=== PATIENT | female | born 1965 | race Caucasian/White ===

== ENCOUNTER → 2016-11-08 | Outpatient (CLI) | payer BC ==
[~2016-11-08] MED LIST: ALBU1AER9 INH; ATEN-173 PO; BCPILLS PO; BECL0.072 INH; CHOL100010 PO; DICY20TA35 PO; LOSA50TA6 PO; OLOP0.1S2 OPB; PANT1TAB48 PO; SERT25TA PO; SYMIN INH
== END | disposition home or self-care (01) ==
LOC: C.PATHSPEC 11:42
PROVIDERS: ATTEND Nurse Practitioner Adult Health
DX: R31.29 Other microscopic hematuria (principal)